=== PATIENT | female | born 1985 | race Caucasian/White ===

== ENCOUNTER 2017-01-08 13:13 | Emergency (ER) | payer MEDICAID, OTHER, SELFPAY ==
[~2017-01-08] VITALS: Ht 172.7 cm; Wt 96.0 kg
[2017-01-08 13:15] VITALS: BP 141/85
== END 2017-01-08 16:22 | disposition home or self-care (01) ==
LOC: ED 14:06
DX: O20.0 Threatened abortion (principal)
CPT/HCPCS: 36415; 76801; 81001; 84702; 86901; 87086; 99285

== ENCOUNTER 2017-01-09 15:14 | Emergency (ER) | payer SELFPAY | END 2017-01-09 15:35 | disposition left against medical advice (07) | LOC: ED 15:29 | DX: R10.9 Unspecified abdominal pain (principal) ==

== ENCOUNTER 2017-01-11 11:32 | Emergency (ER) | payer SELFPAY ==
[~2017-01-11] VITALS: Ht 160 cm; Wt 97.3 kg
[2017-01-11 11:34] VITALS: BP 128/76
== END 2017-01-11 13:30 | disposition home or self-care (01) ==
LOC: ED 12:38
DX: O03.9 Complete or unspecified spontaneous abortion without complication (principal)
CPT/HCPCS: 36415; 84702; 99283